=== PATIENT | male | born 1985 ===

== ENCOUNTER → 2017-10-15 14:45 | Outpatient (REF) | payer SELFPAY | LOC: OM 14:45 | PROVIDERS: Visit Provider Nurse Practitioner Family | DX: Z02.79 Encounter for issue of other medical certificate (principal) ==

== ENCOUNTER 2023-09-30 22:41 | Outpatient (REF) | payer MEDICAID, SELFPAY ==
[2023-10-01 16:42] LABS: Abs Immature Grans 0.02 10^3/uL (0.0-0.06); Absolute Basophil Count 0.09 10^3/uL (0.0-0.2); Absolute Eosinophil Count 0.36 10^3/uL (0.0-0.7); Absolute Lymphocyte Count 2.03 10^3/uL (1.2-3.4); Absolute Monocyte Count 0.52 10^3/uL (0.1-0.8); Absolute Neutrophil Count 5.32 10^3/uL (1.2-6.7); Basophils % 1.1 %; Eosinophils % 4.3 %; HCT 44.7 % (40.0-50.0); HGB 14.9 g/dL (13.5-17.5); Immature Grans % 0.2 %; Lymphocytes % 24.3 %; MCH 29.2 pg (27.0-33.0); MCHC 33.3 % (32.0-36.0); MCV 88 fL (80-95); MPV 10.6 fL (8.0-11.0); Monocytes % 6.2 %; Neutrophils % 63.9 %; Platelet Count 226 10^3/uL (130-400); RBC 5.11 10^6/uL (4.36-5.78); RDW 13.2 % (11.8-14.1); RDW-SD 42.9 fL; WBC 8.34 10^3/uL (4.4-10.8)
[2023-10-01 16:50] LABS: Hemoglobin A1C 5.1 % (<5.7)
[2023-10-01 17:20] LABS: ALT 66 U/L (16-63); AST 27 U/L (15-37); Albumin 4.5 g/dL (3.4-5.0); Alkaline Phosphatase 73 U/L (46-116); Anion Gap 8.5 mmol/L (3-11); BUN 19 mg/dL (7-18); Bilirubin, Total 0.47 mg/dL (0.2-1.0); CO2 28.5 mmol/L (21.0-32.0); CREATININE 0.9 mg/dL (0.70-1.30); Calcium 9.5 mg/dL (8.5-10.1); Chloride 104 mmol/L (98-107); Cholesterol 167 mg/dL (<200); Estimated GFR 111.42 (mL/min/1.73m2); Glucose 86 mg/dL (74-106); Sodium 141 mmol/L (136-145); TSH (W/Ref FT4) 1.49 uIU/mL (0.36-3.74); Total Protein 7.7 g/dL (6.4-8.2); Triglyceride 199 mg/dL (<150); Vitamin D 25 Total 40.5 ng/mL (30-100)
[2023-10-01 18:05] LABS: Calculated LDL 92 mg/dL (<100); HDL Cholesterol 36 mg/dL (40-60); Vitamin B12 318 pg/mL (193-986)
== END 2023-09-30 22:42 | disposition home or self-care (01) ==
LOC: LBN 22:41
PROVIDERS: Visit Provider Nurse Practitioner Family
DX: E78.5 Hyperlipidemia, unspecified (principal); I10 Essential (primary) hypertension; D51.3 Other dietary vitamin B12 deficiency anemia; E55.9 Vitamin D deficiency, unspecified; Z00.00 Encounter for general adult medical examination without abnormal findings
CPT/HCPCS: 80053; 80061; 82306; 82607; 83036; 84443; 85025